=== PATIENT | male | born 1995 | race Caucasian/White ===

== ENCOUNTER 2016-07-15 | Emergency (ER) | payer OTHER ==
--- NOTE | 2016-07-16 00:14 | ED ---
Head Injury HPI - General Chief complaint: Head Injury Stated complaint: Head Injury Time Seen by Provider: 07/15/16 23:18 Source: patient, RN notes reviewed Mode of arrival: ambulatory Limitations: no limitations - History of Present Illness Initial comments: Patient is a 21-year-old male presents to the emergency room for evaluation of head injury. Patient states he was at work cleaning out a shelf around 7:00 this evening and went to stand up and hit the top of his head against a metal corner of the table. Patient denies loss of consciousness. Patient states he has a slight headache. Patient states the area on his scalp began to bleed slightly. Patient denies changes in vision, nausea, vomiting, neck pain, numbness or tingling in extremities. Patient denies any weakness. Patient denies taking anything for his pain. Patient denies any other injuries during incident. Patient states he's updated on his tetanus vaccine. - Related Data Home Medications Medication Instructions Recorded Confirmed No Known Home Medications [No 07/15/16 07/15/16 Known Home Medications] Allergies/Adverse reactions: Allergies Allergy/AdvReac Type Severity Reaction Status Date / Time No Known Allergies Allergy Verified 07/15/16 22:51 Review of Systems ROS Statement: Those systems with pertinent positive or pertinent negative responses have been documented in the HPI. ROS Other: All systems not noted in ROS Statement are negative. Past Medical History Past Medical History: No Reported History History of Any Multi-Drug Resistant Organisms: None Reported Past Surgical History: No Surgical Hx Reported Past Psychological History: No Psychological Hx Reported Smoking Status: Current every day smoker Past Alcohol Use History: None Reported Past Drug Use History: None Reported General Exam - General Exam Comments Initial Comments: Sitting in exam room, no acute distress. Limitations: no limitations General appearance: alert, in no apparent distress Head exam: Present: normocephalic Expanded Head exam: Present: abrasion (Superficial abrasion over mid parietal portion of the top of the scalp) Eye exam: Present: normal appearance ENT exam: Present: normal exam Neck exam: Present: normal inspection Respiratory exam: Present: normal lung sounds bilaterally. Absent: respiratory distress Cardiovascular Exam: Present: regular rate, normal rhythm, normal heart sounds Extremities exam: Present: normal inspection Back exam: Present: normal inspection Neurological exam: Present: alert, oriented X3, CN II-XII intact, normal gait Expanded Patient oriented to: Present: person, place, time Speech: Present: fluid speech Cranial nerves: EOM's Intact: Normal, Facial Sensation: Normal Sensory exam: Upper Extremity Light Touch: Normal, Lower Extremity Light Touch: Normal Motor strength exam: RUE: 5, LUE: 5, RLE: 5, LLE: 5 Eye Response: (4) open spontaneously Motor Response: (6) obeys commands Verbal Response: (5) oriented Psychiatric exam: Present: normal affect, normal mood Skin exam: Present: warm, dry, intact, normal color. Absent: rash Course Vital Signs 07/15/16 22:48 Temperature 97.8 F Pulse Rate 62 Respiratory 18 Rate Blood Pressure 131/79 O2 Sat by Pulse 99 Oximetry Medical Decision Making - Medical Decision Making Patient is a 21-year-old male presents to the emergency room for evaluation of head trauma. Patient has a superficial abrasion over the top of the scalp. Patient has no neuro deficits. Advised patient states Tylenol/Motrin for headache and to follow-up with his primary care provider in 1-2 days. Patient states he understands everything that was discussed with him. Return parameters discussed. Case discussed with Dr. Del Cid. Disposition Clinical Impression: Closed head injury, Abrasion of scalp Disposition: HOME SELF-CARE Condition: Good Instructions: Abrasion (ED), Head Injury (ED) Additional Instructions: Take Tylenol or Motrin as needed for headache. Please follow up with primary care provider 1-2 days for reevaluation. If any new symptom arises or symptoms worsen, return to ER as soon as possible. Referrals: Enrique Galan MD [Primary Care Provider] - 1-2 days Time of Disposition: 00:14
== END 2016-07-16 00:21 | disposition home or self-care (01) ==
CPT/HCPCS: 99283

== ENCOUNTER 2017-03-18 21:03 | Emergency (ER) | payer OTHER ==
[2017-03-18 21:12] VITALS: BP 133/84; PULSE 60; RESP 18; TEMP 98.8
--- NOTE | 2017-03-18 21:20 | ED ---
General Adult HPI - General Chief complaint: Extremity Injury, Upper Stated complaint: Hand Injury Time Seen by Provider: 03/18/17 21:14 Source: patient, RN notes reviewed Mode of arrival: ambulatory Limitations: no limitations - History of Present Illness Initial comments: Patient is a 21-year-old male who presents emergency room today with a chief complaint of an injury to the right hand that occurred earlier today. Patient states became upset with his fall and punched a door frame. Patient admits to pain over the fourth and fifth metacarpals. Patient denies any recent fever, chills, shortness of breath, chest pain, back pain, abdominal pain, nausea or vomiting, numbness or tingling, dysuria or hematuria, constipation or diarrhea, headaches or visual changes, or any other complaints. - Related Data Previous Rx's Medication Instructions Recorded Ibuprofen [Motrin] 600 mg PO Q6HR PRN #20 day 03/18/17 Allergies Allergy/AdvReac Type Severity Reaction Status Date / Time No Known Allergies Allergy Verified 07/15/16 22:51 Review of Systems ROS Statement: Those systems with pertinent positive or pertinent negative responses have been documented in the HPI. ROS Other: All systems not noted in ROS Statement are negative. Past Medical History Past Medical History: No Reported History History of Any Multi-Drug Resistant Organisms: None Reported Past Surgical History: No Surgical Hx Reported Past Psychological History: No Psychological Hx Reported Smoking Status: Current every day smoker Past Alcohol Use History: Occasional Past Drug Use History: None Reported General Exam - General Exam Comments Initial Comments: General: The patient is awake and alert, in no distress, and does not appear acutely ill. Neck: The neck is supple, there is no tenderness or JVD. Cardiovascular: There is a regular rate and rhythm. No murmur, rub or gallop is appreciated. Respiratory: Lungs are clear to auscultation, respirations are non-labored, breath sounds are equal. No wheezes, stridor, rales, or rhonchi. Musculoskeletal: Patient does have small superficial abrasion over the fourth MCP joint. Patient shows good range of motion with both flexion and extension. Sensations are intact. Pulses are equal bilaterally 2+. Cap refill less than 2 seconds. Mild tenderness over the fourth and fifth metacarpals and MCP joints. No step-offs or deformities appreciated. Neurological: A&O x 3. CN II-XII intact, There are no obvious motor or sensory deficits. Coordination appears grossly intact. Speech is normal. Skin: Skin is warm and dry and no rashes or lesions are noted. Psychiatric: Normal mood and affect. Limitations: no limitations Course Vital Signs 03/18/17 21:09 Temperature 98.8 F Pulse Rate 60 Respiratory 18 Rate Blood Pressure 133/84 O2 Sat by Pulse 98 Oximetry Medical Decision Making - Medical Decision Making X-ray negative for any acute abnormalities. Patient will be discharged home advised follow-up in 7-10 days if symptoms persist. Disposition Clinical Impression: Hand contusion Disposition: HOME SELF-CARE Condition: Good Instructions: Contusion in Adults (ED) Additional Instructions: Please use medication as discussed. Please follow-up with family doctor in the next 7-10 days of symptoms have not improved. Please return to emergency room if the symptoms increase or worsen or for any other concerns. Prescriptions: Ibuprofen [Motrin] 600 mg PO Q6HR PRN #20 day PRN Reason: Pain Referrals: Enrique Galan MD [Primary Care Provider] - 1-2 days Time of Disposition: 21:39
--- NOTE | 2017-03-18 21:30 | XR ---
EXAMINATION TYPE: XR hand complete RT DATE OF EXAM: 03/18/2017 COMPARISON: NONE HISTORY: Pain TECHNIQUE: 3 views FINDINGS: I see no fracture nor dislocation. Metacarpals are intact. Carpal bones are intact. IMPRESSION: Negative right hand exam.
== END 2017-03-18 21:51 | disposition home or self-care (01) ==
LOC: EC 21:03
DX: S60.221A Contusion of right hand, initial encounter (principal); F17.200 Nicotine dependence, unspecified, uncomplicated; W22.09XA Striking against other stationary object, initial encounter
CPT/HCPCS: 99283